=== PATIENT | male | born 1985 | race Hispanic/Latino ===

== ENCOUNTER 2019-09-20 22:20 | Emergency (ER) | payer MEDICAID ==
[2019-09-20] MEDS ORDERED: TETRACAINE HCL 0.5% 4 ML OPHTH SOLN ONE (23:43)
[2019-09-20] MEDS ORDERED: FLUORESCEIN SODIUM 1 STRIP STRIP ONE (23:43)
[2019-09-20] MEDS ORDERED: NA BORATE/BORIC AC/H2O/NACL 120 ML OPHTH IRRIG SOLN ONE (23:43)
[2019-09-20] MEDS ORDERED: ONDANSETRON ODT 4 MG TAB ONE (23:44)
[2019-09-21] MEDS ORDERED: TETRACAINE HCL 0.5% 4 ML OPHTH SOLN ONE (00:04)
[2019-09-21] MEDS ORDERED: ERYTHROMYCIN BASE 0.5% OPHTH OINT 1 GM TUBE ONE (02:11)
== END 2019-09-21 02:21 | disposition home or self-care (01) ==
LOC: EDH 22:20
DX: S00.10XA Contusion of unspecified eyelid and periocular area, initial encounter (principal); S00.83XA Contusion of other part of head, initial encounter; S09.90XA Unspecified injury of head, initial encounter; J45.909 Unspecified asthma, uncomplicated; I10 Essential (primary) hypertension; X58.XXXA Exposure to other specified factors, initial encounter; Y93.89 Activity, other specified; Y92.89 Other specified places as the place of occurrence of the external cause; Y99.8 Other external cause status

== ENCOUNTER 2022-01-09 02:07 | Emergency (ER) | payer MEDICAID ==
[~2022-01-09] VITALS: Ht 180.3 cm; Wt 128.1 kg
[2022-01-09] MEDS ORDERED: HYDROCODONE/ACETAMINOPHEN 10/325 MG TAB PO ONE (03:00)
[2022-01-09] MEDS ORDERED: 0.9%NACL 1000ML 2,000 ML IV ONE (03:00)
[2022-01-09] MEDS ORDERED: INSULIN HUMULIN R 100 UNIT/ML 3ML SQ ONE (03:00)
[2022-01-09 03:09] LABS: BASOPHILS % (AUTO) 0.5 % (0.0-5.0); EOSINOPHILS % (AUTO) 1.2 % (0.0-8.0); HEMATOCRIT 40.4 % (42-54); LYMPHOCYTES % (AUTO) 24.1 % (21.0-51.0); MEAN CORPUSCULAR HEMOGLOBIN 28.2 pg (27.0-33.0); MEAN CORPUSCULAR HGB CONC 33.2 g/dL (32.0-36.0); MEAN CORPUSCULAR VOLUME 84.9 fL (79-99); MONOCYTES % (AUTO) 7.9 % (3.0-13.0); NEUTROPHILS % (AUTO) 65.8 % (40.0-77.0); PLATELET COUNT (AUTO) 243 K/uL (130-400); RED BLOOD CELL COUNT(AUTO) 4.76 MIL/uL (4.50-6.20); RED CELL DISTRIBUTION WIDTH 12.6 % (11.0-15.5); WHITE BLOOD COUNT (AUTO) 12.1 K/uL (4.8-10.8)
[2022-01-09 03:22] LABS: CREATININE 0.9 mg/dL (0.5-1.5); POTASSIUM 3.6 mmol/L (3.5-5.1)
[2022-01-09] MEDS ORDERED: CEFAZOLIN SODIUM 2 GM VIAL IVP SCH (03:30)
[2022-01-09] MEDS ORDERED: CEFAZOLIN SODIUM 1 GM VIAL ONE (03:36)
[2022-01-09 04:17] VITALS: BP 137/81
[2022-01-09] MEDS ORDERED: DICL50TA9 PO (04:28)
[2022-01-09] MEDS ORDERED: CEPH500B PO (04:28)
== END 2022-01-09 04:42 | disposition home or self-care (01) ==
LOC: EDH 02:07
DX: L03.317 Cellulitis of buttock (principal); L02.32 Furuncle of buttock; E11.65 Type 2 diabetes mellitus with hyperglycemia; I10 Essential (primary) hypertension
CPT/HCPCS: 99283; 96374; 96361; 80048; 85025; 82948 ×2; 36415; 96372; J1815; J0690; J7030